=== PATIENT | female | born 1940 | race Caucasian/White ===

== ENCOUNTER 2018-10-11 10:31 | Inpatient (IN) ==
[2018-10-11 10:46] LABS: BLOOD TYPE ARTERIAL; HCO3-(ACT) 27.8 mmoll (20.0-26.0); METHB 0.9 % (0.0-1.5); O2(CT) 17.9 mL/dL (15.0-23.0); PCO2(98.6) 37 mmHg (35-45); PO2(98.6) 57 mmHg (60-100); SAMPLE BLOOD; SAO2 91.6 % (95.0-100.0); THB 14.3 g/dL (11.5-17.4); pH(98.6) 7.48 (7.35-7.45)
[2018-10-11 10:49] LABS: ALLEN TEST YES; MODALITY CANNULA
[2018-10-11 10:55] LABS: BASO# 0.04 X1000 (0.0-0.2); BASO% 0.2 % (0.0-0.8); EOS# 0.04 X1000 (0.0-0.7); EOS% 0.2 % (0.0-10.0); HEMOGLOBIN 14.5 g/dL (12.0-16.0); IMM GRAN# 0.12 X1000 (0.0-0.04); IMM GRAN% 0.7 % (0.0-0.5); LYMPH# 2.75 X1000 (1.2-3.4); LYMPH% 15.8 % (20.5-51.1); MCHC 31.5 g/dL (33-37); MCV 98.3 FL (81-99); MONO# 2.25 X1000 (0.11-0.59); MONO% 12.9 % (1.7-9.3); MPV 9.6 FL (7.4-10.4); NEUT# 12.19 X1000 (1.4-6.5); NEUT% 70.2 % (42.2-75.2); PLT 288 X1000 (130-400); RBC 4.68 XMIL (4.2-5.4); WBC 17.39 X1000 (4.8-10.8)
--- NOTE | 2018-10-11 11:01 | Diag Imaging Result Doc PS360 ---
EXAM: CHEST-2 VIEWS HISTORY: sob TECHNIQUE: Chest two views COMPARISON: None. FINDINGS: The patient is very kyphotic. Poor inspiratory effort.. The heart is borderline mildly enlarged. The vessels are not distended although there is mild central vascular prominence. There are no infiltrates. No pleural effusions. IMPRESSION: Mildly prominent heart Electronically signed by Gray Loomis 10/11/2018 10:58 AM
[2018-10-11 11:12] LABS: INR 0.95; PROTIME 13.2 Seconds (11.0-16.0)
[2018-10-11 11:13] LABS: PTT 26.3 Seconds (22.3-41.8)
[2018-10-11 11:27] LABS: AGAP 15; ALBUMIN 3.5 g/dL (3.5-5.0); ALKALINE PHOSPHATASE 75 U/L (32-104); BUN 25 mg/dL (8-22); CALCIUM 9.1 mg/dL (8.8-10.2); CHLORIDE 102 mmol/L (98-107); CK PROFILE 50 U/L (24-173); COSMO 292; CREATININE 0.7 mg/dL (0.5-0.9); ESTIMATED GFR > 60; GLUCOSE 114 mg/dL (70-104); GOT 22 U/L (10-30); GPT 26 U/L (10-36); POTASSIUM 3.3 mmol/L (3.5-5.1); SODIUM 144 mmol/L (136-145); TCO2 27 mmol/L (25-35); TOTAL PROTEIN 7.1 g/dL (6.3-8.3)
[2018-10-11 12:19] LABS: INFLUENZA A NEGATIVE (NEGATIVE); INFLUENZA B NEGATIVE (NEGATIVE)
--- NOTE | 2018-10-11 12:41 | Diag Imaging Result Doc PS360 ---
CT ANGIOGRM PULMONARY ARTERIES - 10/11/2018 INDICATION: rule out PE TECHNIQUE: Axial CT images were obtained after administering intravenous contrast. Coronal MIP images were generated. COMPARISON: None FINDINGS: There are several acute-appearing pulmonary emboli bilaterally. These involve several segmental arteries bilaterally and most lobar arteries. There is moderate cardiomegaly. There is a trace pleural effusion on the right. In the superior segment of the right lower lobe, there is an oblong nodular opacity measuring 3 cm. There is some hazy groundglass opacity bilaterally compatible with pulmonary edema. Upper abdominal images are unremarkable. There are several right-sided rib fractures, ribs #7-9. This seventh rib fracture is slightly displaced. The other rib fractures are nondisplaced. There is advanced degeneration throughout the spine. IMPRESSION: 1. Several acute pulmonary emboli. 2. Several recent right-sided rib fractures. Trace right pleural effusion. 3. Nodular infiltrate or opacity in the superior segment of the right lower lobe. Recommend a follow-up chest CT in 1-2 weeks. This exam was performed using automated exposure control, adjustment of mA or kV according to patient size, and/or use of iterative reconstruction technique Electronically signed by Андрей Montague 10/11/2018 12:38 PM
[2018-10-11] MEDS ORDERED: HEPARIN IV ONE (13:02)
[2018-10-11] MEDS ORDERED: LASIX IV ONE ×2 (13:07→22:38)
--- NOTE | 2018-10-11 13:07 | EKG Report ---
Test Performed on : 10/11/2018 11:17:45 AM Test Reason : cp Blood Pressure : / mmHG Vent. Rate : 104 BPM Atrial Rate : 104 BPM P-R Int : 134 ms QRS Dur : 082 ms QT Int : 360 ms P-R-T Axes : 053 010 -15 degrees QTc Int : 473 ms Sinus tachycardia. Inferior infarct , age undetermined ST & T wave abnormality, consider anterior ischemia Abnormal ECG No previous ECGs available Unconfirmed Result
[2018-10-11] MEDS ORDERED: LASIX ONE (13:52)
[2018-10-11] MEDS: HEPARIN 25,000 UNITS/D5W 25,000 UNIT/250 ML IV.SOLN IV SCH (14:00)
[2018-10-11] MEDS ORDERED: ZITHROMAX PO SCH (15:00)
[2018-10-11] MEDS ORDERED: ROCEPHIN 1 GM in NS 50 ML IV SCH (15:00)
--- NOTE | 2018-10-11 16:39 | Extremity Venous Study ---
Venous U/S Bilateral Legs - 10/11/2018 INDICATION: PE TECHNIQUE: COMPARISON: None FINDINGS: The right leg is normal. On the left side, there is extensive deep venous thrombosis. This involves the mid-distal superficial femoral vein, popliteal vein, and posterior tibial vein. IMPRESSION: Extensive deep venous thrombosis on the left. Electronically signed by Андрей Montague 10/11/2018 4:37 PM
--- NOTE | 2018-10-11 18:03 | PROVIDER DOCUMENTATION ---
This chart was entered by Marla Hernandez Scribe, acting as scribe for Magrie Rolon MD. HPI-Respiratory General - General Chief Complaint: Shortness of Breath Stated Complaint: SOB Time Seen by Provider: 10/11/18 10:31 Source: patient Allergies/Adverse Reactions: Patient Allergies Allergy/AdvReac Type Severity Reaction Status Date / Time aspirin Allergy HIVES Verified 10/11/18 10:47 Home Medications: Home Medication List Medication Instructions Recorded Confirmed Last Taken Type Amoxicillin/Potassium Clav 1 each PO BID 10/11/18 10/11/18 1 Day Ago History [Augmentin 875-125 Tablet] ~10/10/18 Ergocalciferol (Vitamin D2) 50,000 unit PO DIRECTED 10/11/18 10/11/18 1 Day Ago History [Vitamin D2] ~10/10/18 Hydrochlorothiazide 25 mg PO QAM 10/11/18 10/11/18 1 Day Ago History ~10/10/18 Omeprazole [Prilosec] 10 mg PO QAM 10/11/18 10/11/18 10/11/18 History Prednisone 10 mg PO BID 10/11/18 10/11/18 10/11/18 History TRANDOLApril [Mavik] 4 mg PO DAILY 10/11/18 10/11/18 1 Day Ago History ~10/10/18 Verapamil HCl [Verapamil ER] 240 mg PO BID 10/11/18 10/11/18 10/11/18 History - History of Present Illness-Resp Nature of Presenting Problem: Patient is a 77 year old female who presents to the ED via EMS with shortness of breath. Patient states she has been short of breath since August after being diagnosed with bronchitis. Patient also states cough and nasal drainage. Patient denies fever. Patient denies history of asthma and COPD. EMS states patient's O2 sat was 85% on room air on their arrival. EMS states placing patient on 4 L of O2 and O2 sat increased to 90%. Quality of Pain: reports: tightness Severity in ED: reports: moderate Onset/Duration: reports: other (2 months) Timing: reports: still present, getting worse Exposure: reports: unknown cause Cough Quality/Degree: reports: moderate Episode Frequency: occasional episodes Current Respiratory Medication Therapy: Initiated see nurses note Modifying Factors: improves with: nothing Associated Symptoms: reports: cough, nasal drainage, shortness of breath Similar Symptoms Previously?: Yes Recently seen or treated by another doctor?: Yes Review of Systems - Adult - REVIEW OF SYSTEMS - ADULT Constitutional: reports: no symptoms reported. denies: chills, fever, fatique Eyes: reports: no symptoms reported Ears, Nose, Mouth & Throat: reports: sinus problem (drainage). denies: ear pain , nose pain, throat pain Cardiovascular: reports: no symptoms reported Respiratory: reports: cough, shortness of breath. denies: wheezing Gastrointestinal: reports: no symptoms reported Genitourinary: reports: no symptoms reported Musculoskeletal: reports: no symptoms reported Integumentary: reports: no symptoms reported Neurological: reports: no symptoms reported Psychiatric: reports: no symptoms reported Endocrine: reports: no symptoms reported Hematologic/Lymphatic: reports: no symptoms reported Allergic/Immunologic: reports: no symptoms reported All Other Systems: Reviewed and Negative Past History - Adult - PAST MEDICAL HISTORY-ADULT Review of Records: reports: Nursing Assessment Review, Medications Reviewed, Social history reviewed & non-contributory. Major Childhood Illnesses: reports: denies history Cardiovascular: reports: HTN Respiratory: reports: denies history Gastrointestinal: reports: GERD Obstetrical/Gynecological: reports: denies history Genitourinary: reports: denies history Musculoskeletal: reports: denies history Neurological: reports: denies history Psychiatric: reports: denies history Endocrine/Immune: reports: denies history Other Conditions: reports: denies history - PRIOR SURGERIES/PROCEDURES Surgical/Procedure History: reports: reviewed, not pertinent - IMMUNIZATION STATUS Childhood Immunizations: See Nurse Assessment Flu Vaccine: See Nurse Assessment - FAMILY HISTORY Family History: reviewed, not pertinent - SOCIAL HISTORY Smoking: denies Substance Use: denies Living Situation: family Physical Exam-General - PHYSICAL EXAM-ADULT Initial Vital Signs Reviewed: Yes - CONSTITUTIONAL General Appearance: alert, mild distress - HEAD, EARS, NOSE, MOUTH & THROAT HENMT: moist mucous membranes, normal ENT inspection - RESPIRATORY Respiratory: chest non-tender, lungs clear, respiratory distress (mild), increased rate - CARDIOVASCULAR Cardiovascular: normal peripheral pulses, tachycardia - GASTROINTESTINAL (ABDOMEN) Abdominal Exam: normal bowel sounds, non tender, soft - MUSCULOSKELETAL Extremity: non-tender, other (1 + pitting edema to bilateral lower extremities) - SKIN Integumentary: normal color, normal turgor, warm/dry - NEUROLOGIC Neurologic: grossly normal - PSYCHIATRIC Psych/Mental Status: normal mood/affect, oriented x 3 Progress - PLAN OF CARE/RESULTS Progress/Plan/Lab Results: Vital Signs - 8 hr 10/11/18 10:32 10/11/18 11:15 10/11/18 12:19 Temperature 99 F Pulse Rate 118 H 105 H 100 H Respiratory Rate 34 H 32 H 32 H Blood Pressure 206/125 170/131 196/97 O2 Sat by Pulse Oximetry 96 96 93 L 10/11/18 14:19 Temperature 99 F Pulse Rate 95 H Respiratory Rate 36 H Blood Pressure 160/94 O2 Sat by Pulse Oximetry 93 L Laboratory Results - last 24 hr 10/11/18 10/11/18 10/11/18 10:15 10:45 10:45 WBC 17.39 H RBC 4.68 Hgb 14.5 Hct 46.0 MCV 98.3 MCH 31.0 MCHC 31.5 L RDW Std Deviation 15.0 H Plt Count 288 MPV 9.6 Immature Gran % (Auto) 0.7 H Neut % (Auto) 70.2 Lymph % (Auto) 15.8 L Fillmore % (Auto) 12.9 H Eos % (Auto) 0.2 Baso % (Auto) 0.2 Immature Gran # (Auto) 0.12 H Neut # (Auto) 12.19 H Lymph # (Auto) 2.75 Fillmore # (Auto) 2.25 H Eos # (Auto) 0.04 Baso # (Auto) 0.04 PT INR PTT (Actin FS) Specimen Type ARTERIAL Sample Site R RADIAL pH 7.48 H pCO2 37 pO2 57 L HCO3 27.8 H Base Excess 4.0 H Oxyhemoglobin 89.0 L* ABG O2 Sat (Calculated) 17.9 ABG O2 Saturation 91.6 L ABG Carboxyhemoglobin 1.90 ABG Methemoglobin 0.9 Hasmukh Test YES A-a O2 Difference 153.0 Total Hemoglobin 14.3 Lactate 1.50 Liter Flow 4.0 Blood Gas Modality CANNULA FiO2 % 36.0 Sodium 144 Potassium 3.3 L Chloride 102 Carbon Dioxide 27 Anion Gap 15 BUN 25 H Creatinine 0.7 Estimated GFR/1.73 m2 > 60 BUN/Creatinine Ratio 36 Glucose 114 H Calculated Osmolality 292 Calcium 9.1 Total Bilirubin 0.80 AST 22 ALT 26 Alkaline Phosphatase 75 Creatine Kinase 50 Troponin T Vnt-Q-Axqfhpzanje Pept Total Protein 7.1 Albumin 3.5 Globulin 4.0 Albumin/Globulin Ratio 1.0 Plasma Lactate Influenza A (Rapid) Influenza B (Rapid) 10/11/18 10/11/18 10/11/18 10:45 10:45 10:45 WBC RBC Hgb Hct MCV MCH MCHC RDW Std Deviation Plt Count MPV Immature Gran % (Auto) Neut % (Auto) Lymph % (Auto) Fillmore % (Auto) Eos % (Auto) Baso % (Auto) Immature Gran # (Auto) Neut # (Auto) Lymph # (Auto) Fillmore # (Auto) Eos # (Auto) Baso # (Auto) PT 13.2 INR 0.95 PTT (Actin FS) 26.3 Specimen Type Sample Site pH pCO2 pO2 HCO3 Base Excess Oxyhemoglobin ABG O2 Sat (Calculated) ABG O2 Saturation ABG Carboxyhemoglobin ABG Methemoglobin Hasmukh Test A-a O2 Difference Total Hemoglobin Lactate Liter Flow Blood Gas Modality FiO2 % Sodium Potassium Chloride Carbon Dioxide Anion Gap BUN Creatinine Estimated GFR/1.73 m2 BUN/Creatinine Ratio Glucose Calculated Osmolality Calcium Total Bilirubin AST ALT Alkaline Phosphatase Creatine Kinase Troponin T 0.031 Par-S-Jwcgloykqrr Pept 25875 H Total Protein Albumin Globulin Albumin/Globulin Ratio Plasma Lactate Influenza A (Rapid) Influenza B (Rapid) 10/11/18 10/11/18 11:30 11:35 WBC RBC Hgb Hct MCV MCH MCHC RDW Std Deviation Plt Count MPV Immature Gran % (Auto) Neut % (Auto) Lymph % (Auto) Fillmore % (Auto) Eos % (Auto) Baso % (Auto) Immature Gran # (Auto) Neut # (Auto) Lymph # (Auto) Fillmore # (Auto) Eos # (Auto) Baso # (Auto) PT INR PTT (Actin FS) Specimen Type Sample Site pH pCO2 pO2 HCO3 Base Excess Oxyhemoglobin ABG O2 Sat (Calculated) ABG O2 Saturation ABG Carboxyhemoglobin ABG Methemoglobin Hasmukh Test A-a O2 Difference Total Hemoglobin Lactate Liter Flow Blood Gas Modality FiO2 % Sodium Potassium Chloride Carbon Dioxide Anion Gap BUN Creatinine Estimated GFR/1.73 m2 BUN/Creatinine Ratio Glucose Calculated Osmolality Calcium Total Bilirubin AST ALT Alkaline Phosphatase Creatine Kinase Troponin T Eej-T-Uhtovxmbuql Pept Total Protein Albumin Globulin Albumin/Globulin Ratio Plasma Lactate 1.6 Influenza A (Rapid) NEGATIVE Influenza B (Rapid) NEGATIVE Orders Category Date Time Status Cardiac Monitoring DIRECTED Care 10/11/18 10:29 Active Rider Cath Insertion ORDERED Care 10/11/18 14:00 Active Oxygen Therapy- ED Nursing DIRECTED Care 10/11/18 10:29 Active Saline Loc NOW Care 10/11/18 10:29 Active CHEST-2 VIEWS [RAD] Stat Exams 10/11/18 10:29 Completed CTA [CT ANGIOGRM PULMONARY ARTERIES] [CT] Stat Exams 10/11/18 11:28 Completed ABG [RESP] Routine Lab 10/11/18 10:15 Completed BLOOD CULTURE [BLDCUL] Stat Lab 10/11/18 11:12 Ordered CBC WITH ELECTRONIC DIFF [HEME] Stat Lab 10/11/18 10:45 Completed CK PROFILE [SP CHEM] Stat Lab 10/11/18 10:45 Completed COMPREHENSIVE METABOLIC PANEL [CHEM] Stat Lab 10/11/18 10:[address] Stat Lab 10/11/18 11:30 Completed INR AMBULATORY Stat Lab 10/11/18 13:03 Ordered LACTATE, PLASMA [CHEM] Stat Lab 10/11/18 11:35 Completed PRO B-NATRIURETIC PEPTIDE Stat Lab 10/11/18 10:45 Completed PROTIME WITH INR [COAG] Stat Lab 10/11/18 10:45 Completed PTT [COAG] Stat Lab 10/11/18 10:45 Completed TROPONIN T Stat Lab 10/11/18 10:45 Completed Furosemide [Lasix] Med 10/11/18 13:52 Discontinued 20 mg .ROUTE .STK-MED ONE Furosemide [Lasix] Med 10/11/18 13:07 Discontinued 20 mg IV NOW ONE Heparin Med 10/11/18 13:02 Discontinued 5,000 unit IV NOW ONE Heparin 25,000 Units/D5w Med 10/11/18 13:15 Active 25,000 unit in 250 ml IV 11.2 mls/hr CP/SOB/Palp >45 yrs of Age Stat Oth 10/11/18 10:29 Ordered Oxygen Device Stat Oth 10/11/18 11:36 Active EKG [EKG] Stat Ther 10/11/18 10:29 Draft Result Diagrams: 10/11/18 10:45 10/11/18 10:45 - EKG 1 Time of EKG reading by physician:: 11:17 EKG Read and Signed by:: Margie Rolon EKG Interpretation (*Must complete 3 of following elements*): Abnormal (ST & T wave abnormality, consider anterior ischemia) Rhythm: sinus tachycardia Comments: inferior infarct, age undetermined; - XRAY 1 XRAY Study: Chest Impression: See EMR Report (EXAM: CHEST-2 VIEWS HISTORY: sob TECHNIQUE: Chest two views COMPARISON: None. FINDINGS: The patient is very kyphotic. Poor inspiratory effort.. The heart is borderline mildly enlarged. The vessels are not distended although there is mild central vascular prominence. There are no infiltrates. No pleural effusions. IMPRESSION: Mildly prominent heart Electronically signed by Gray Loomis 10/11/2018 10:58 AM 10/11/18 1058 Interpreting Physician: Gray Loomis MD Dictated Date/Time: 10/11/18 1058 cc: Margie Rolon MD; Isiah Silverman MD) - CT/MRI 1 CT Study: Angiogram Impression: See EMR Report ( CT ANGIOGRM PULMONARY ARTERIES - 10/11/2018 INDICATION: rule out PE TECHNIQUE: Axial CT images were obtained after administering intravenous contrast. Coronal MIP images were generated. COMPARISON: None FINDINGS: There are several acute-appearing pulmonary emboli bilaterally. These involve several segmental arteries bilaterally and most lobar arteries. There is moderate cardiomegaly. There is a trace pleural effusion on the right. In the superior segment of the right lower lobe, there is an oblong nodular opacity measuring 3 cm. There is some hazy groundglass opacity bilaterally compatible with pulmonary edema. Upper abdominal images are unremarkable. There are several right-sided rib fractures, ribs #7-9. This seventh rib fracture is slightly displaced. The other rib fractures are nondisplaced. There is advanced degeneration throughout the spine. IMPRESSION : 1. Several acute pulmonary emboli. 2. Several recent right-sided rib fractures. Trace right pleural effusion. 3. Nodular infiltrate or opacity in the superior segment of the right lower lobe. Recommend a follow-up chest CT in 1-2 weeks. This exam was performed using automated exposure control, adjustment of mA or kV according to patient size, and/or use of iterative reconstruction technique Electronically signed by Андрей Montague 10/11/2018 12: 38 PM 10/11/18 1238 Interpreting Physician: Андрей Montague MD Dictated Date/Time: 10/11/18 1233 cc: Margie Rolon MD; Isiah Silverman MD) - CONSULTS/PCP/HOSPITALIST Notification #1 *Consult/PCP/Hospitalist*: Dr. Angeles Time Discussed: 13:35 Reason/Comments: Dr. Rolon consulted with Dr. Angeles about patient. Consult Disposition: Will see in ED Departure - Departure Date of Disposition Decision: 10/11/18 Time of Disposition Decision: 13:35 DIAGNOSIS: Multiple pulmonary emboli Disposition: ADMITTED INPATIENT 09 Certified Medical Emergency: Emergent Condition: Stable Referrals and Follow-Ups: Isiah Silverman MD [Primary Care Provider] - - Critical Care Note This patient required my direct & personal management of CC.: Yes Total Time (mins): 46 Critical Care Statement: This patient required my direct personal management to treat or rule out processes, the absence of which, could potentiallly result in sudden, clinically significant life or limb threatening deterioration. Attestation - Physician/ BRONWYN Attestation The physician spent face to face time with patient:: Yes Advanced Practice Provider documentation review:: Supervising physician onsite and consulted in the evaluation and care of this patient. The physician did have a face to face encounter with the patient. This chart was documented by the indicated scribe, (Marla Hernandez Scribe) and accurately reflects the services I performed and decisions made by me, Margie Rolon MD, as attested by the provider's signature.
[2018-10-11] MEDS ORDERED: NORCO-5 PO ONE (18:36)
[2018-10-11] MEDS ORDERED: MORPHINE IV PRN (18:44)
[2018-10-11] MEDS: SOLU-CORTEF IV SCH (19:21)
--- NOTE | 2018-10-11 20:49 | HISTORY AND PHYSICAL ---
CHIEF COMPLAINT: Shortness of breath. HISTORY OF PRESENT ILLNESS: This is a 77-year-old female with a history of gastroesophageal reflux disease, hypertension, rheumatoid arthritis, She presents to the emergency room complaining of shortness of breath that has actually been present since August for which she was evaluated by her primary care physician and has taken two 10 day rounds of amoxicillin and two 5 day rounds of Bactrim, along with albuterol inhaler and she reports symptoms slowly have become worse during this time. Today she had an exacerbation, has slowly increased during this time. Today, she became extremely short of breath, having 90 degree orthopnea. Therefore, she called EMS and her O2 sat was 85% on room air on their arrival. It is reported that 4 L of oxygen increased her to 90%. On arrival to the emergency room sats were 95-96% on 4 L nasal cannula. Respirations were 32 to 34 at this time, blood pressures were 206/125. She was given Lasix. A CTA pulmonary was performed which revealed several acute pulmonary emboli bilaterally, involved several segmental arteries bilaterally and most lobar arteries, as well as a 3 cm oblong nodular opacity in the right lower lobe. She was also noted to have right-sided rib fractures 7 through 9 with the 7th rib being slightly displaced that are recent.She was given 5000 of heparin, placed on heparin drip per heparin protocol and she is being admitted for further evaluation and treatment. PAST MEDICAL HISTORY: Rheumatoid arthritis on chronic steroids, hypertension, gastroesophageal reflux disease. PAST SURGICAL HISTORY: Denies. SOCIAL HISTORY: She denies alcohol, tobacco or illicit drug use. ALLERGIES: Aspirin, which causes hives. HOME MEDICATIONS: A list will be obtained by the nursing staff and once confirmed for accuracy it will be reviewed and started as appropriate. REVIEW OF SYSTEMS: Discussed with patient with pertinent positives stated in the HPI. She denied any syncope, dizziness, any chest pain, palpitations, any recent weight loss or weight gain, any nausea, vomiting, diarrhea, constipation, black or bloody vomitus or stools, hematuria, dysuria, frequency or urgency. PHYSICAL EXAMINATION: GENERAL: This is a 77-year-old female who is sitting up in the bed in the emergency room in mild distress. VITAL SIGNS: Blood pressure is 160/94, with respirations 32, heart rate is 95, temperature is 99 oral, with O2 sats 92-93% on Venturi mask at 8 L. EYES: Pupils are equal, round, react to light. EOMs are intact. Sclerae are anicteric. Mucous membranes. HEENT: Normocephalic, atraumatic. Mucous membranes are moist. NECK: Supple. Trachea midline. CARDIOVASCULAR: Regular rate and rhythm. S1 and S2 are appreciated. She has pitting edema noted to bilateral lower extremities from just above the knee down with peripheral pulses palpable x 4 extremities. She denies any leg pain or calf tenderness. PULMONARY: Breath sounds are diminished throughout. CHEST: Rises and falls symmetrically with respiration. Chest wall is nontender to palpation. She does have some increased work of breathing noted. GASTROINTESTINAL: Abdomen is soft, nontender, nondistended with bowel sounds in all 4 quadrants. GENITOURINARY: She has no CVT nor suprapubic tenderness. NEUROLOGIC: She is alert oriented x 3. SKIN: Warm and dry. LABORATORY: WBC is 17.3 with hemoglobin 14.5, hematocrit 46 and platelets of 288,000. INR 0.95. Sodium is 144, potassium 3.3, BUN is 25, creatinine 0.7 with a glucose of 114. ProBNP is 11,892. Flu A and B are negative. ABGs: PH is 7.4, with pCO2 of 37, PO2 of 57, with a bicarb of 27.8. Blood cultures are pending. Chest x-ray revealed mildly prominent heart with poor inspiratory effort. Vessels are not distended, although there is mild central vascular prominence. There are no infiltrates, no pleural effusions. Pulmonary arteriogram revealed several acute pulmonary emboli bilaterally involving segmental arteries bilaterally and most lobar arteries. There is cardiomegaly. There is a trace pleural effusion. In the superior segment of the right lower lobe there is an oblong nodular opacity measuring 3 cm. There is some hazy ground-glass opacity bilateral compatible with pulmonary edema. There are several right rib fractures, #7 to 9, with the 7th rib slightly displaced. These are recent fractures. A CT is recommended to follow up in 1 to 2 weeks. Lower extremity Doppler reveals extensive deep vein thrombosis on the left involving the mid to distal superficial femoral vein, popliteal vein and posterior tibial vein. ASSESSMENT: 1. Acute bilateral pulmonary emboli. The patient was given heparin bolus in the emergency room. We will continue with a heparin drip per protocol. 2. Extensive left lower extremity DVT. As stated above, we will use heparin drip. 3. Acute hypoxic respiratory failure. We will continue with supplemental oxygen. We will consult Pulmonology. 4. Leukocytosis. Causes could be multifactorial. The patient is on chronic steroids for rheumatoid arthritis, Also, she has been treated over the last 2 months for bronchitis. She has also had four rounds of antibiotics previously. Blood cultures are pending. We will go ahead and give Rocephin and azithromycin. 5. A 3 cm nodule in the right lower lobe per CT scan. Will consult Pulmonology. 6. Right-sided rib fractures #7 through 9 with displaced 7th rib. We are aware. 7. Elevated proBNP. She denies any history of heart failure. She denies ever having an echocardiogram or workup. We will order an echocardiogram. 8. Rheumatoid arthritis, on chronic steroids. We are aware and will review her home medications and continue as appropriate. 9. Hypertension. Will check home medications. 10. Gastroesophageal reflux disease, with PPI. 11. Rheumatoid arthritis. PLAN: The patient will be transferred to [facility] ICU. Pulmonary will be consulted. Further consults. We will place a Rider catheter as the patient becomes very hypoxic with standing. We will also obtain a strict I O with daily weights. Check a CBC and CMP in the morning and, of course, PTTs per protocol. Further treatments pending hospital course. Dictated by LISSETH Anderson for Harvinder Angeles MD This chart was documented by, LISSETH Anderson and accurately reflects the services performed, treatment plan and medical decisions as attested by the providers signature Harvinder Angeles MD. cc: LISSETH Anderson MD
[2018-10-11] MEDS ORDERED: KLOR-CON PO ONE (22:37)
[2018-10-11] MEDS: AMBIEN PO SCH (23:45)
[2018-10-12] MEDS: ISOPTIN SR PO SCH ×3 (00:10→20:57)
[2018-10-12] MEDS: SOLU-CORTEF IV SCH ×3 (02:33→18:58)
[2018-10-12 04:02] LABS: BASO# 0.03 X1000 (0.0-0.2); BASO% 0.2 % (0.0-0.8); EOS# 0.02 X1000 (0.0-0.7); EOS% 0.1 % (0.0-10.0); HEMATOCRIT 40.5 % (37.0-47.0); HEMOGLOBIN 12.7 g/dL (12.0-16.0); IMM GRAN% 0.6 % (0.0-0.5); LYMPH# 1.86 X1000 (1.2-3.4); MCH 31.3 PG (27-31); MCHC 31.4 g/dL (33-37); MCV 99.8 FL (81-99); MONO# 1.39 X1000 (0.11-0.59); MPV 9.5 FL (7.4-10.4); NEUT# 12.11 X1000 (1.4-6.5); NEUT% 78.1 % (42.2-75.2); PLT 256 X1000 (130-400); RBC 4.06 XMIL (4.2-5.4); RDW 14.8 % (11.5-14.5); WBC 15.51 X1000 (4.8-10.8)
[2018-10-12 04:27] LABS: AGAP 13; ALB/GLOB RATIO 0.8; ALBUMIN 2.8 g/dL (3.5-5.0); ALKALINE PHOSPHATASE 54 U/L (32-104); BUN 20 mg/dL (8-22); CALCIUM 8.7 mg/dL (8.8-10.2); CHLORIDE 103 mmol/L (98-107); COSMO 293; CREATININE 0.6 mg/dL (0.5-0.9); ESTIMATED GFR > 60; GLUCOSE 130 mg/dL (70-104); GOT 15 U/L (10-30); GPT 20 U/L (10-36); POTASSIUM 3.8 mmol/L (3.5-5.1); SODIUM 145 mmol/L (136-145); TCO2 29 mmol/L (25-35); TOTAL PROTEIN 6.2 g/dL (6.3-8.3)
[2018-10-12] MEDS ORDERED: PRILOSEC PO SCH (07:00)
[2018-10-12] MEDS: HEPARIN 25,000 UNITS/D5W 25,000 UNIT/250 ML IV.SOLN IV SCH (08:34)
[2018-10-12] MEDS ORDERED: MORPHINE IV PRN (08:36)
[2018-10-12] MEDS ORDERED: HEPARIN 25,000 UNITS/D5W 25,000 UNIT/250 ML IV.SOLN IV SCH (09:00)
[2018-10-12] MEDS ORDERED: ISOPTIN SR PO SCH ×2 (09:00)
[2018-10-12] MEDS: ZITHROMAX PO SCH (09:36)
--- NOTE | 2018-10-12 10:13 | PROGRESS NOTE ---
DATE: 10/12/2018 SUBJECTIVE: This morning Ms. Prather refers to be doing fairly okay. Still has some residual shortness of breath and is tachypneic. OBJECTIVE: Vital signs: Blood pressure is 135/88, pulse of 73, respirations 27 , temperature is 97.9. The patient's O2 saturation is 94% on Venturi mask. General: Ms. Prather is a 77-year- old lady. She is in bed. She is not in any cardiopulmonary distress. HEENT: Mucosa is pink and moist. Anicteric. Acyanotic. Neck: Supple. Chest: Air entry is bilaterally reduced. A few crackles posteriorly. Cardiovascular: Tachycardic but no murmurs, no rubs, and no gallops. Abdomen: Soft, distended, but nontender. Bowel sounds are present. Extremities: No pedal edema. Distal pulses present. 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 No focal neurological deficit. LABORATORY DATA: WBC is 15.51, hemoglobin is 12.7, platelet count of 256,000. Chemistry is also reviewed, completely unremarkable. Yesterday the patient pro-B was 11,892 and troponins were normal. The patient has never been hypotensive. IMAGING STUDIES: A CTA of the lung did show several acute pulmonary emboli. Lower extremity DVT shows left-sided extensive DVT. ASSESSMENT: 1. Acute hypoxemic respiratory failure secondary to underlying pulmonary embolism, possibly pneumonia versus pulmonary infarct. The patient is currently on a heparin drip. 2. Left lower extremity deep vein thrombosis. The patient is on a heparin drip. We think this is because the patient has been remarkably immobile for the past couple of months, coupled by her weight. We will call Hematology/Oncology to evaluate the patient and also to make sure that we do not miss any other secondary causes of VTEs. I have reached out to [facility] to see if IR will evaluate the patient for intrapulmonary thrombolytics. However, I understand the hospital is on diversion. 3. History of hypertension. 4. Morbid obesity. 5. Right lower lobe infiltrate concerning for pneumonia. The patient is currently on antibiotics. As I said, this could also be an infarcted lung from the PE or atelectasis PLAN: So in general I think Ms. Prather continues to be slightly tachycardic and tachypneic. Her cardiac markers were elevated, especially the pro-B. We are still pending the echocardiogram to see how strained is the right heart. In any case, patient is currently on anticoagulation. I think her VTEs are related to immobility. However, secondary causes are also plausible to be ruled out. The patient will be evaluated by Hematology/Oncology and will be seen by Pulmonary Medicine. I did discuss the possibilities of getting surgery also to see the patient for IVC filter evaluation. I will, however, wait until patient is seen by Hematology/ Oncology. I also discussed with the patient about getting to [facility] to look at her imaging and see if they would recommend intrapulmonary tPA. However, I was told by the transfer center that [place] is on diversion. For now we will continue with the IV heparin and hopefully tomorrow we might be able to start the patient on oral anticoagulation. I did discuss the newer oral anticoagulants with them and both the and the patient are willing to use the newer anticoagulation and not the Coumadin. cc: Jacobo Franks MD MTDD
--- NOTE | 2018-10-12 13:46 | PULMONOLOGY CONSULTATION ---
DATE: 10/12/2018 REASON FOR CONSULTATION: Pulmonary emboli. HISTORY OF PRESENT ILLNESS: Ms. Prather is a 77-year-old white female with morbid obesity, long history of rheumatoid arthritis, with decrease in mobility, who has noted increasing shortness of breath over the last 6 to 8 weeks. The patient was treated for bronchitis without improvement. The patient has been relatively immobile for the last 24 to 36 hours, and when she went to move she noted her breathing has become worse. The patient presented to the emergency room and was initially significantly hypertensive with a systolic blood pressure greater than 200. A CT pulmonary angiogram was performed yesterday morning, which reveals several pulmonary emboli bilaterally. The patient also has some right rib fractures, but does not recall recent trauma. She has been initiated on heparin. She denies shortness of breath at rest. PAST MEDICAL HISTORY/PROBLEM LIST: 1. Morbid obesity with a BMI greater than 40 as per above. 2. Rheumatoid arthritis with a long history of steroid use. 3. Gastroesophageal reflux disease. 4. Hypertension. SOCIAL HISTORY: The patient denies tobacco or alcohol use. FAMILY HISTORY: Noncontributory to current presentation. PHYSICAL EXAMINATION: General: Reveals an obese white female, resting comfortably in the bed. She has no increased work of breathing. Vital Signs: Blood pressure 136/76, heart rate 93, respiratory rate 27, oxygen saturation 95%. HEENT: Pupils are equal and reactive. Oropharynx is clear. Neck: Supple. Chest: Reveals good air entry bilaterally with normal S1, normal S2. No right ventricular heave is appreciated. Cardiac: Regular rate. Normal S1, normal S2. Abdomen: Obese and soft. Extremities: Without edema. LABORATORY DATA: CT scan as per HPI. Venous Doppler studies of the lower extremities reveal deep vein thrombosis involving the mid to distal superficial femoral vein, popliteal vein, and posterior tibial vein. Arterial blood gas reveals a pH of 7.48, pCO2 of 37, PO2 of 57. Chemistries: Sodium 144, potassium 3.3, chloride 102, bicarbonate 27, BUN 25, creatinine 0.7. IMPRESSION: A 77-year-old white female with deep vein thrombosis, pulmonary emboli, hypoxemic respiratory failure. She currently is hemodynamically doing well. She has had no significant tachycardia over 100 beats per minute. She has had no evidence of hypotension, if anything has been periods of hypertension during this hospitalization. She has rib fractures, but no recent trauma. I would still deem her a candidate for thrombolytics if she were to have an alteration in clinical status. At this juncture, I would continue anticoagulation and switch the patient to Xarelto or Eliquis in the next 24 to 48 hours. If she were to switch to Coumadin, she will need to be overlapped with the heparin. At this juncture, I would not pursue filter placement. The patient does have an elevation in the proBNP and likely related to a combination of pulmonary emboli, but I suspect that her baseline proBNP is at least slightly to moderately elevated associated with her morbid obesity. RECOMMENDATIONS: 1. Continue oxygen for acute hypoxemic respiratory failure. 2. Continue heparin for pulmonary emboli. It is not clear why she is on a heparin drip, and Lovenox could be utilized if necessary to simplify her management. 3. Consider transition to Eliquis or Xarelto in the near future. cc: Wai Lopez MD
--- NOTE | 2018-10-12 14:43 | HEMO/ONC CONSULTATION ---
DATE: 10/12/2018 CHIEF COMPLAINT: We are being consulted for further evaluation and management of patient's pulmonary embolism and extensive DVT. HISTORY OF PRESENT ILLNESS: Ms. Prather is a 77-year-old female who presented to the emergency room complaining of shortness of breath that has been going on since August but progressively gotten worse over the past few days. When she arrived to the emergency department, she was 75% on room air that improved with 4 L of oxygen. The patient had a CTA pulmonary which revealed several acute pulmonary emboli bilaterally that involve several segmental arteries bilaterally and most lobar arteries. The patient also had some right-sided rib fracture 7 through 9. The patient was started on a heparin drip at that time and admitted to the ICU for further evaluation and treatment. PAST MEDICAL HISTORY: Rheumatoid arthritis on chronic steroids, hypertension, gastroesophageal reflux disease. PAST SURGICAL HISTORY: Denies any. SOCIAL HISTORY: Denies any alcohol, tobacco, or illicit drug use. FAMILY HISTORY: Noncontributory. ALLERGIES: Aspirin. HOME MEDICATIONS: 1. Vitamin D2. 2. Hydrochlorothiazide. 3. Osborne 5. 4. Prilosec. 5. Prednisone. 6. Mavik. 7. Verapamil ER 8. Ambien. REVIEW OF SYSTEMS: Negative unless mentioned in the HPI. PHYSICAL EXAMINATION: Vital Signs: Temperature 98.1, heart rate 79, respiratory rate 32, blood pressure 142/87. Sat 95% on nasal cannula. General: Patient is awake, lying in bed, mildly short of breath and tachypneic. HEENT: Anicteric. Pupils PERRLA. Mucous membranes dry. Neck: Supple. Trachea is midline. No JVD noted. L:ymph nosde survey: no palpable lymphadenopathy. Cardiovascular: Regular rate and rhythm. Chest: Bilateral breath sounds diminished bilaterally. Abdomen: Soft, nontender. Bowel sounds present in all 4 quadrants. No hepatosplenomegaly noted. Skin: Warm, dry, and intact. No petechiae, no clubbing, no rashes, cyanosis. Pitting edema to bilateral lower extremities. Neurologic: Alert and oriented x3. No focal deficits noted. LABORATORY DATA: White cell count 15.51, hemoglobin 12.7, hematocrit 40.5, platelets are 256. Potassium 3.8. BUN 20. Creatinine 0.6. RADIOLOGY RESULTS: 1. CT angiogram of pulmonary arteries showed several acute pulmonary emboli, several recent right- sided rib fractures with a trace right pleural effusion and then a nodular infiltrate or opacity in the superior segment of the right lower lobe. They recommend a follow-up CT in 1 to 2 weeks. 2. Venous ultrasound to bilateral legs shows an extensive deep venous thrombosis on the left involving the mid distal superficial femoral vein, popliteal vein, and posterior tibial vein. ASSESSMENT AND PLAN: 1. Acute bilateral pulmonary emboli with extensive left lower extremity deep venous thrombosis: A hypercoagulable workup is pending at this time. It is most likely related to immobilization but those labs are pending. We will continue to follow up on those. The patient is on heparin drip. Continue heparin per protocol at this time. We will continue to monitor closely. 2. Acute hypoxic respiratory failure: Continue with oxygen. Continue recommendations per pulmonology. 3. Leukocytosis most likely chronic due to chronic steroid use for rheumatoid arthritis. Blood cultures are pending at this time. Continue antibiotics as ordered by primary medical team. Continue to monitor. 4. Right lower lobe lung nodule on CT scan: Pulmonology has been consulted. Continue to monitor closely. 5. Left-sided rib fracture 7 through 9 with displaced 7th rib, aware. 6. Elevated ProBNP: Denies any history of heart failure. Echocardiogram has been ordered looking for any right-sided heart strain due to pulmonary embolism as well. 7. Rheumatoid arthritis on chronic steroids, aware. Continue to monitor. 8. Hypertension. Continue home medications. 9. Gastroesophageal reflux disease. Continue with proton pump inhibitor. Plan discussed with Dr. Ward. Dictated by LISSETH Cuello for Camilo Ward MD Patient seen and examined. Patient has felt unwell over the last 2 months. She initially developed respiratory illness with a prolonged recovery course. This led to a good bit of immobilization. Her shortness of breath has continued to worsen and she has developed increasing weakness. In the ER evaluation revealed bilateral pulmonary embolism as well as left lower extremity DVT. An echocardiogram has been a obtained to rule out heart strain. No family history of DVT or pulmonary embolism. We will check hypercoagulable state. Continue anticoagulation as you are doing. Discussed with Dr. Lopez. Camilo Ward M.D. cc: LISSTEH Cuello MD [facility]
[2018-10-12] MEDS: ROCEPHIN 1 GM in NS 50 ML IV SCH (16:12)
--- NOTE | 2018-10-12 19:46 | ECHO REPORT ---
ORDER DATE: 10/11/2018 INDICATION: Suspected pericardial effusion. M-MODE MEASUREMENTS: Left ventricle end diastole: 3.5. Left ventricle end systole: 2.2. Posterior wall: 1.3 to 1.5. Interventricular septum: 1.3 to 1.5. Left atrium: 3.4. Aortic root: 2.8. SUMMARY OF 2-DIMENSIONAL IMAGIN. Left ventricular function is excellent. Ejection fraction is estimated at 65% to 70%. There is a mild degree of concentric LVH. A trivial pericardial effusion may be present. This is not causing any hemodynamic compromise. There is epicardial fat pad. 2. The aortic valve shows no stenosis nor regurgitation. There is some sclerosis of it. 3. The mitral valve is unremarkable. 4. Pulsed wave Doppler of mitral inflow shows mild reversal of the E/A ratio. The ratio is 0.9. 5. Tissue Doppler of septal and lateral mitral annulus averages 4 cm. There is impaired left ventricular relaxation. 6. The tricuspid valve shows a mild degree of regurgitation. Pulmonary pressure estimated at 51 to 56 mmHg. 7. The pulmonic valve is normal. Color flow mapping unremarkable. 8. There is no evidence of mass. No thrombus. SUMMARY: This study shows: 1. Hyperdynamic left ventricle with mild degree of concentric LVH. 2. Very small trivial pericardial effusion. No hemodynamic compromise is present. 3. Pulmonary pressure 51 to 56 mmHg. 4. Impaired left ventricular relaxation. 5. Sclerosis of the aortic valve without stenosis. Clinical correlation recommended. cc: MD Neeru Rdz CRNP
[2018-10-12] MEDS: AMBIEN PO SCH (22:00)
[2018-10-13] MEDS ORDERED: NS 1,000 ML IV SCH (01:15)
[2018-10-13] MEDS: SOLU-CORTEF IV SCH (02:53)
[2018-10-13] MEDS ORDERED: HEPARIN IV ONE (05:26)
[2018-10-13] MEDS ORDERED: HEPARIN 25,000 UNITS/D5W 25,000 UNIT/250 ML IV.SOLN IV SCH (05:30)
[2018-10-13] MEDS: PRILOSEC PO SCH (07:09)
--- NOTE | 2018-10-13 08:10 | Diag Imaging Result Doc PS360 ---
EXAM: CHEST-PORTABLE 10/13/2018 HISTORY: dyspnea TECHNIQUE: AP portable at 0753 COMMENT: There is cardiomegaly. The left heart border is obscured and there is opacity in the left costophrenic angle. Compared to 10/11/2018 there has been no significant change considering differences in technique and inspiration. IMPRESSION: Atelectasis versus pneumonia in the lingula. Electronically signed by Abe Burris 10/13/2018 8:08 AM
[2018-10-13] MEDS: ISOPTIN SR PO SCH ×2 (08:34→20:19)
[2018-10-13] MEDS: ZITHROMAX PO SCH (08:34)
--- NOTE | 2018-10-13 08:50 | HEMO/ONC PROGRESS NOTE ---
DATE: 10/13/2018 SUBJECTIVE: The patient continues to be short of breath and tachypneic. The patient continues to deny any pain. OBJECTIVE: Vital Signs: Temperature of 97.9 degrees, heart rate 73, respiratory rate 24, blood pressure is 148/86, saturating 97% on nasal cannula. General: The patient is awake, lying in bed. No acute distress noted at this time. HEENT: Anicteric. Pupils PERRLA. Mucous membranes appear to be moist. Cardiovascular: S1, S2. Chest: Bilateral breath sounds diminished bilaterally. Abdomen: Soft, nontender. Bowel sounds present in all 4 quadrants. Neurologic: Alert and oriented x3. No focal deficits noted. Laboratory Data: Homocystine level normal. ASSESSMENT AND PLAN: 1. Acute bilateral pulmonary emboli with extensive left lower extremity deep venous thrombosis: Homocystine level was normal. Rest of the hypercoagulable workup is still pending. We will continue to follow up on those. The patient will continue a heparin drip as ordered. Transition to Xarelto soon. Continue to monitor closely. 2. Acute hypoxic respiratory failure: Continue oxygen. Continue recommendations per pulmonology. 3. Leukocytosis: Most likely due to chronic steroid use. Blood culture so far showed no growth. Continue recommendations per primary medical team. 4. Right lower lobe lung nodule on CT scan: Pulmonary has been consulted as well. Continue to monitor closely. 5. Left-sided rib fractures 7 through 9. 6. Gastroesophageal reflux disease: Continue with proton pump inhibitors. Dictated by LISSETH Cuello for Camilo Cavazos MD No new issues. Continue anticoagulation. ECHO without strain. Change to oral therapy when possible. camilo cavazos MD cc: LISSETH Cuello MD [facility]
--- NOTE | 2018-10-13 09:35 | PULMONOLOGY PROGRESS NOTE ---
DATE: 10/13/2018 SUBJECTIVE: Patient is awake, alert, and conversant. She reports her shortness of breath has diminished a little bit. She has a cough, which she reports is occasionally productive. OBJECTIVE: Vital signs: The patient had been afebrile for the last 24 hours. Vital signs: Blood pressure 148/86, heart rate 73, respiratory rate 22, oxygen saturation 97% on 4 L per nasal cannula. HEENT: Pupils are equal and reactive. Oropharynx is clear. Neck: Supple. Chest: Reveals occasional rhonchi bilaterally. Cardiac: S1 and S2. Regular rhythm. Abdomen: Soft. Extremities: Without edema. LABORATORIES: Chest x-ray appears to show some atelectasis at the left base, unchanged from admission. But significant atelectasis not seen on her CT scan, likely related to cardiomegaly or cardiac fat pad. No chemistries or CBC today. IMPRESSION: A 77-year-old with bilateral pulmonary emboli, deep vein thrombosis involving the left lung, with hypoxemic respiratory failure. She continues to do hemodynamically well. She reports her sense of dyspnea has diminished. RECOMMENDATIONS: 1. Continue heparin drip. At this juncture, she could be transitioned to Eliquis, or Xarelto, or even Lovenox. 2. Continue bronchial hygiene. She will be given an incentive spirometer. 3. Would limit mobilization for several days, although this is not well-defined in the literature. cc: Wai Lopez MD
[2018-10-13] MEDS ORDERED: HYDROCHLOROTHIAZIDE PO SCH (11:00)
[2018-10-13] MEDS: ELIQUIS PO SCH ×2 (11:39→20:15)
[2018-10-13] MEDS: LASIX IV SCH (11:39)
--- NOTE | 2018-10-13 11:43 | PROGRESS NOTE ---
DATE: 10/13/2018 SUBJECTIVE: This morning, Ms. Prather refers to be doing a lot better. No chest pain. No shortness of breath. She says she has been coughing, but she feels the chest has loosened up. OBJECTIVE: Vital signs: Blood pressure is 142/79, pulse is 83, respiration is 25, temperature 98.7 degrees. General: Ms. Prather is a 77-year-old female. She is in bed. She is not in any cardiopulmonary distress. HEENT: Mucosa is pink and moist. Anicteric. Acyanotic. Neck: Supple. Chest: Good air entry bilateral. No crepitations. No rhonchi. Cardiovascular: Regular rate and rhythm. No murmurs, no rubs, no gallops. GI: Abdomen was soft, nontender. Bowel sounds present. Extremities: A trace of pedal edema. 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 There is no focal neurological deficit. LABORATORY DATA: WBC is down to 15.51, hemoglobin is 12.9, platelet count of 259,000. Chemistry is also reviewed which is completely unremarkable. A chest x-ray this morning did show atelectasis versus pneumonia in the lingula. ASSESSMENT: 1. Acute hypoxemic respiratory failure secondary to pulmonary embolism with pneumonia. We will continue to address the underlying issues. Patient is currently on nasal cannula at 4 L, and she is saturating about 95%. 2. Bilateral pulmonary emboli with elevated proB. The patient had an echocardiogram, which did not make any mention of acute problem with the right ventricle. This morning she remains hemodynamically stable. She was on heparin drip. We are going to change this to Eliquis 10 mg b.i.d. for 7 days and transition it to 5 mg b.i.d. for the rest of the duration. Patient is being seen by Heme-Onc. 3. Left lower extremity deep venous thrombosis. Will continue with anticoagulation. 4. Left lingular pneumonia versus atelectasis. Patient is currently on intravenous antibiotics. White cell count seems to be going down. We will continue with the current antibiotic coverage. 5. Hypertension is controlled. 6. Morbid obesity. 7. History of rheumatoid arthritis. The patient used to be Enbrel, but has not taken this since July of last year. She follows up with a marine erector in [place]. 8. Chronic steroid use. The patient was on prednisone at home. In the hospital, she was started on stress doses of steroids. I have gone back to her regular doses now. 9. Multiple rib fractures at the right side. 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 We will restart the patient back on her high doses of vitamin D. I think she will eventually to be on bisphosphonates. We will, however, defer that recommendation to her marine erector that she is on regular basis. So, in general, I think Ms. Prather is doing fairly okay, hemodynamically stable. We are going to switch her from the IV anticoagulation to p.o. Eliquis. Observe her 1 day in the ICU. If she is stable and tolerating her p.o. medications, we will transfer her to the floor and hopefully, get her home in the next 24 to 48 hours. cc: Jacobo Franks MD
[2018-10-13] MEDS: MAVIK PO SCH (12:36)
[2018-10-13] MEDS: ROCEPHIN 1 GM in NS 50 ML IV SCH (16:35)
[2018-10-13] MEDS: PREDNISONE PO SCH (20:15)
[2018-10-13] MEDS: AMBIEN PO SCH (20:15)
[2018-10-14 05:43] LABS: BASO# 0.02 X1000 (0.0-0.2); BASO% 0.2 % (0.0-0.8); EOS# 0.03 X1000 (0.0-0.7); EOS% 0.2 % (0.0-10.0); HEMATOCRIT 38.4 % (37.0-47.0); HEMOGLOBIN 11.7 g/dL (12.0-16.0); IMM GRAN# 0.05 X1000 (0.0-0.04); IMM GRAN% 0.4 % (0.0-0.5); LYMPH# 1.37 X1000 (1.2-3.4); MCH 30.7 PG (27-31); MCHC 30.5 g/dL (33-37); MCV 100.8 FL (81-99); MONO# 1.21 X1000 (0.11-0.59); MONO% 9.7 % (1.7-9.3); MPV 9.7 FL (7.4-10.4); NEUT# 9.78 X1000 (1.4-6.5); NEUT% 78.5 % (42.2-75.2); PLT 277 X1000 (130-400); RBC 3.81 XMIL (4.2-5.4); RDW 14.8 % (11.5-14.5); WBC 12.46 X1000 (4.8-10.8)
[2018-10-14 06:22] LABS: AGAP 12; ALB/GLOB RATIO 0.9; ALBUMIN 2.8 g/dL (3.5-5.0); ALKALINE PHOSPHATASE 53 U/L (32-104); BUN 39 mg/dL (8-22); CALCIUM 8.5 mg/dL (8.8-10.2); CHLORIDE 104 mmol/L (98-107); COSMO 299; CREATININE 0.7 mg/dL (0.5-0.9); ESTIMATED GFR > 60; GLUCOSE 119 mg/dL (70-104); GOT 20 U/L (10-30); GPT 29 U/L (10-36); MAGNESIUM 1.8 mg/dL (1.5-2.7); PHOSPHORUS 2.9 mg/dL (2.7-4.5); POTASSIUM 3.7 mmol/L (3.5-5.1); SODIUM 145 mmol/L (136-145); TCO2 29 mmol/L (25-35); TOTAL BILIRUBIN 0.44 mg/dL (0.20-1.00)
[2018-10-14] MEDS: PRILOSEC PO SCH (06:36)
--- NOTE | 2018-10-14 08:51 | HEMO/ONC PROGRESS NOTE ---
DATE: 10/14/2018 SUBJECTIVE: The patient says she seems to be feeling better at this time. Shortness of breath continues to improve. OBJECTIVE: Vital Signs: Temperature 97.5 degrees, heart rate 73, respiratory rate 24, blood pressure 139/74, saturating 96% on nasal cannula. General: Patient is awake, lying in bed, in no acute distress noted. HEENT: Anicteric. Pupils PERRLA. Mucous membranes appear to be moist. Cardiovascular: Normal S1, S2. Regular rate and rhythm. Chest: Breath sounds with rhonchi bilaterally. Abdomen: Soft, nontender. Bowel sounds present all 4 quadrants. Neurologic: Alert and oriented x3. No focal deficits noted. LABORATORY DATA: White blood cell count is 12.46, hemoglobin 10.7, hematocrit 38.4, platelets are 277. Potassium 3.7, BUN 39, creatinine 0.7. RADIOLOGY RESULTS: Chest x-ray yesterday showed atelectasis versus pneumonia in the lingula. ASSESSMENT AND PLAN: 1. Acute bilateral pulmonary emboli with extensive left lower extremity deep venous thrombosis. Hypercoagulable still pending. We will continue to monitor and follow up on those. The patient is on Eliquis at this time. Continue Eliquis as ordered. Continue to monitor very closely. 2. Acute hypoxic respiratory failure: Shortness of breath continues to improve. Continue oxygen and recommendations per pulmonology. 3. Leukocytosis: The white blood cell count continues to decrease. This is most likely due to her chronic steroid use. Continue to monitor. 4. Gastroesophageal reflux disease. Continue with proton-pump inhibitors as ordered. Dictated by LISSETH Cuello for Camilo Ward MD cc: LISSETH Cuello MD
[2018-10-14] MEDS: ELIQUIS PO SCH ×2 (08:55→21:53)
[2018-10-14] MEDS: HYDROCHLOROTHIAZIDE PO SCH (08:56)
[2018-10-14] MEDS: PREDNISONE PO SCH ×2 (08:56→21:53)
[2018-10-14] MEDS: LASIX IV SCH (08:57)
[2018-10-14] MEDS: ISOPTIN SR PO SCH ×2 (08:57→21:52)
[2018-10-14] MEDS: ZITHROMAX PO SCH (08:57)
[2018-10-14] MEDS: MAVIK PO SCH (08:58)
[2018-10-14] MEDS ORDERED: VITAMIN D PO SCH (09:30)
--- NOTE | 2018-10-14 10:55 | PULMONOLOGY PROGRESS NOTE ---
DATE: 10/14/2018 SUBJECTIVE: Patient reports she feels a little better when she sits up and coughs and clears her secretions. She currently has no dyspnea at rest. OBJECTIVE: Vital signs: BP 162/72, heart rate 80, respiration rate 19, oxygen saturation 94% on 4 L per nasal cannula. HEENT: Pupils are equal and reactive. Oropharynx is clear. Neck: Supple. Chest: Reveals significant kyphosis. Cardiac: S1, S2. Abdomen: Soft. Extremities: Without edema. LABORATORIES: ProBNP has decreased to 1442. Sodium 145, potassium 3.7, chloride 104, bicarbonate 29, BUN 39, creatinine 0.7. White blood count 12.46, hemoglobin 11.7, platelet count 227,000. IMPRESSION: 1. A 77-year-old with bilateral pulmonary emboli. 2. Deep vein thrombosis in the left lung. 3. Evidence of cardiac strain with elevated proBNP. 4. Acute hypoxemic respiratory failure. 5. She has been switched to Eliquis. Although not well defined, I would recommend she remain at bed rest until Wednesday and then to begin ambulation at that time. RECOMMENDATION: 1. Agree with Eliquis as you are doing. 2. Would monitor labs and prevent patient from being too prerenal. 3. Recommend patient remain relatively immobile over the weekend and to begin physical therapy on Wednesday. cc: Wai Lopez MD
--- NOTE | 2018-10-14 12:04 | PROGRESS NOTE ---
DATE: 10/14/2018 SUBJECTIVE: This morning, Ms. Prather refers to be doing a whole lot better. Shortness of breath and cough significantly improved. She is on 4 L of nasal cannula oxygen, and she is saturating 98. OBJECTIVE: Vital signs: Blood pressure is currently 171/95, pulse 78, respiration 24, temperature is 97.6. General: Ms. Prather is a 77-year-old female. She is in bed in no distress. HEENT: Mucosa is pink and moist. Anicteric and acyanotic. Neck: Supple. Chest: Good entry bilaterally, a few crackles posteriorly. Cardiovascular: Regular rate and rhythm. There are no murmurs, no rubs, no gallops. GI: Abdomen was soft, nontender, bowel sounds present. Extremities: Trace of pedal edema. SOCIAL WORK ASSISTANT: The patient is awake, alert, and oriented. There is no focal neurological deficit. LABORATORY DATA: WBC 12.46, hemoglobin 11.7, platelet count 277. Chemistries also reviewed, completely normal. MEDICATIONS: The patient is currently on: 1. Eliquis 10 b.i.d. 2. Azithromycin 500 daily. 3. Ceftriaxone 1 g daily. Today is day 2 on that. 4. Hydrochlorothiazide 25 daily for blood pressure control. 5. Verapamil 240. 6. Mavik 4 mg daily. ASSESSMENT: 1. Acute hypoxemic respiratory failure on presentation secondary to PE with associated pneumonia. The patient is currently saturating well on 4 L nasal cannula. 2. Bilateral pulmonary emboli with left lower extremity deep vein thrombosis. The patient has been started on Eliquis 10 mg yesterday. She seems to be tolerating it well. 3. Left lingular pneumonia versus atelectasis. The patient is currently on antibiotics. White cell count is on downward trend. 4. Uncontrolled hypertension. The patient has been started on her home meds. We will continue to observe this. 5. History of rheumatoid arthritis noted. 6. Chronic steroid use. The patient is on prednisone at home. She seems to have had some fractures to the right ribs secondary to osteoporosis. She has been advised before that she would need to be on a bisphosphonate and she would continue that with her cable engineer. 7. 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 In general, I think Ms. Prather is doing fairly okay. She is stable, hemodynamically fine. We are going to transfer her to a regular room and continue with the current anticoagulation. cc: Jacobo Franks MD
[2018-10-14] MEDS: ROCEPHIN 1 GM in NS 50 ML IV SCH (16:24)
[2018-10-14] MEDS: AMBIEN PO SCH (21:53)
[2018-10-14] MEDS: NORCO-5 PO PRN (21:57)
[2018-10-15] MEDS: PRILOSEC PO SCH (06:01)
[2018-10-15] MEDS: MAVIK PO SCH (10:25)
[2018-10-15] MEDS: ISOPTIN SR PO SCH ×2 (10:26→22:08)
[2018-10-15] MEDS: PREDNISONE PO SCH ×2 (10:26→22:08)
[2018-10-15] MEDS: ELIQUIS PO SCH ×2 (10:26→22:07)
[2018-10-15] MEDS: HYDROCHLOROTHIAZIDE PO SCH (10:27)
[2018-10-15] MEDS: LASIX IV SCH (10:27)
[2018-10-15] MEDS: ZITHROMAX PO SCH (10:27)
--- NOTE | 2018-10-15 14:25 | PROGRESS NOTE ---
DATE: 10/15/2018 SUBJECTIVE: This morning Ms. Prather referred to be doing fairly okay. No chest pain and no shortness of breath. She was sitting at the side of the bed and was in the room with her. OBJECTIVE: Vitals: Blood pressure is 155/66, pulse 81, respirations 22, temperature 98.1 degrees. General: Ms. Prather 77-year-old female she was sitting at the edge of the bed, she was not in any cardiopulmonary distress. Mucosa is pink and moist. Anicteric. Acyanotic. Neck: Supple. Chest: Good entry bilateral. There was no crepitations, no rhonchi. Cardiovascular: Regular rate and rhythm. No murmurs, no rubs, no gallops. Abdomen: Was soft, nontender, bowel sounds present, slightly distended. Extremities: No pedal edema. Distal pulses present. COLLABORATING SUPERVISING PHYSICIAN: Patient is awake, alert, oriented. There is no focal neurological deficit. LABORATORY DATA: None for today. Medications have been reviewed, patient is currently on therapeutic doses of Eliquis. ASSESSMENT: 1. Acute hypoxemic respiratory failure on presentation secondary to pulmonary embolism associated with pneumonia, patient is currently still on 4 L of nasal cannula. We are going to titrate this down today. 2. Bilateral pulmonary emboli with left lower extremity deep vein thrombosis. The patient is on Eliquis. 3. Left lingular pneumonia versus atelectasis. White cell count normalized, patient is still on ceftriaxone and azithromycin. Will continue this for a total of 7 days. 4. History of rheumatoid arthritis. Patient follows up with a hand spring repairer in [place]. 5. Chronic steroid use. 6. 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 Patient has been advised to follow up with her hand spring repairer to evaluate the use of bisphosphonates. So in general I think Ms Prather is doing a lot better. She is still on oxygen at 4 L. We are going to see we can titrate this off today and hopefully send her home tomorrow. cc: Jacobo Franks MD MTDD
--- NOTE | 2018-10-15 14:32 | HEMO/ONC PROGRESS NOTE ---
DATE: 10/15/2018 SUBJECTIVE: The patient continues to feel better at this time. Shortness of breath and cough have greatly improved. OBJECTIVE: Vitals Signs: Temperature 98.1, heart rate 81, respiratory rate 22, blood pressure 155/56, sat 95% on nasal cannula. General: Patient is awake, lying in bed, in no acute distress noted. HEENT: Anicteric. Pupils PERRLA. Mucous membranes moist. Cardiovascular: S1, S2. Regular rate and rhythm. Chest: Bilateral breath sounds clear to auscultation. Abdomen is soft, nontender. Bowel sounds present in all 4 quadrants. Neurologic: Alert and oriented x3. No focal deficits noted. LABORATORY DATA: White cell count 7.46, hemoglobin 11.7, hematocrit 38.4, platelets are 277. Potassium 3.7. BUN 39, creatinine 0.7. ASSESSMENT AND PLAN: 1. Acute bilateral pulmonary emboli with left lower extremity deep venous thrombosis: So far hypercoagulable workup continues to be negative. Continue to monitor those labs. The patient will continue on Eliquis as ordered. Continue to monitor closely. 2. Acute hypoxic respiratory failure. Shortness of breath continues to improve. Continue recommendations per Pulmonology. Disposition: Patient to be discharged on Eliquis. Patient will follow up in Clinic after discharge. Dictated by LISSETH Cuello for Camilo Ward MD MTDD
[2018-10-15] MEDS: ROCEPHIN 1 GM in NS 50 ML IV SCH (14:44)
--- NOTE | 2018-10-15 19:47 | PULMONOLOGY PROGRESS NOTE ---
DATE: 10/15/2018 SUBJECTIVE: Patient reports she feels better. She reports her dyspnea continues to diminish. OBJECTIVE: The patient has been afebrile for the last 24 hours. Blood pressure 135/50, heart rate 68, respiratory rate 22, oxygen saturation 91% on 4 L per nasal cannula.HEENT: Pupils are equal and reactive. Oropharynx is clear. Neck: Supple. Chest: Reveals significant kyphosis with diminished breath sounds. Cardiac: S1-S2. Abdomen: Soft and without hepatosplenomegaly. Extremities: Reveal trace pretibial edema. LABORATORIES: No new chemistries or CBC. IMPRESSION: 77-year-old with bilateral pulmonary emboli with significant pulmonary burden, left lower lobe deep vein thrombosis, decreasing proBNP level, acute hypoxemic respiratory failure. RECOMMENDATIONS: 1. Continue Eliquis as you are doing. 2. Would limit ambulation through the weekend then begin mobilization on Wednesday. Although this is not well-defined, patient will through emboli with ambulation. She will be at less risk the further she is from the point of initial anticoagulation. 3. Anticipate discharge next week. cc: Wai Lopez MD
[2018-10-15] MEDS: NORCO-5 PO PRN (22:08)
[2018-10-15] MEDS: AMBIEN PO SCH (22:08)
[2018-10-16] MEDS: PRILOSEC PO SCH ×2 (05:51→06:00)
[2018-10-16] MEDS: PREDNISONE PO SCH (11:20)
[2018-10-16] MEDS: ELIQUIS PO SCH (11:21)
[2018-10-16] MEDS: ISOPTIN SR PO SCH (11:21)
[2018-10-16] MEDS: ZITHROMAX PO SCH (11:21)
[2018-10-16] MEDS: MAVIK PO SCH (11:21)
[2018-10-16] MEDS: HYDROCHLOROTHIAZIDE PO SCH (11:21)
[2018-10-16 15:16] VITALS: BP 111/61
--- NOTE | 2018-10-17 04:17 | DISCHARGE SUMMARY ---
ADMISSION DATE: 10/11/2018 DISCHARGE DATE: 10/16/2018 CONSULTATION DURING THIS ADMISSION: Heme-Onc was consulted, the patient was seen by Dr. Ward. Pulmonary Medicine was consulted, the patient was seen by Dr. Hardin. INVASIVE PROCEDURES DONE DURING THIS ADMISSION: None. IMAGING STUDIES OF SIGNIFICANCE: 1. A CTA was done which shows several acute pulmonary emboli, several recent right-sided rib fractures, nodular infiltrate or opacity in the superior segment of the right lower lobe. 2. Echocardiogram did show an ejection fraction of 65%-70%. 3. A Doppler ultrasound did show an extensive thrombosis on the left. 4. A follow-up chest x-ray shows atelectasis versus pneumonia in the lingula. ADMISSION DIAGNOSES: 1. Bilateral pulmonary embolism. 2. Extensive left lower lobe deep venous thrombosis. 3. Leukocytosis. 4. Right-sided rib fractures. 5. Rheumatoid arthritis on chronic steroid use. DIAGNOSES AT THE TIME OF DISCHARGE: 1. Acute hypoxemic respiratory failure on presentation secondary to pulmonary embolism and pneumonia. The patient's oxygen needs has been titrated and weaned off. This afternoon she was saturating 95%-100% on ambient air. 2. Bilateral pulmonary emboli with left lower deep vein thrombosis. The patient was initially started on heparin drip and was transitioned to Eliquis. 3. Left lingular pneumonia versus atelectasis. The patient is on antibiotics and will complete azithromycin 7 days. 4. History of rheumatoid arthritis. The patient follows up with a section hand helper in [place]. 5. Acquired immunocompromised state secondary to chronic steroid use. 6. 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 The patient has been advised to discuss the use of bisphosphonates with her PCP and section hand helper. PRESENTING COMPLAINT: Shortness of breath. HISTORY OF PRESENTING COMPLAINT: Ms. Prather is a 77-year-old female with a history of rheumatoid arthritis, GERD, hypertension, who came to the emergency department because of acute onset of shortness of breath. The patient was evaluated and was found to have O2 saturation of 85% on room air. She was placed on oxygen and was investigated. A CTA revealed acute pulmonary emboli bilaterally, and a Doppler ultrasound did show an extensive left lower extremity deep vein thrombosis. The patient presented initially to [facility], was evaluated over there and transferred to [facility] for higher level of care. HOSPITAL COURSE: Ms. Prather was initially admitted to the ICU. She was on a face max at 8 L and this was progressively wean down until discharge that she was on nothing. Investigation did reveal bilateral PE and DVT. She was initially started on heparin drip. Heme-Onc and Pulmonary Medicine were consulted. The patient anticoagulation was changed when she became more stable to Eliquis. The patient hemodynamically had always been stable, never had hypotension. Her oxygen demands were daily titrated, so this morning she was just on 2 L, and this was taken off and she has been maintaining adequate saturation throughout the day. She is now completely asymptomatic. She has been advised that she can do very light walking around, but no any strenuous activity. She will go home to complete a 7-day course of Eliquis 10 mg b.i.d., after that she will be on 5 mg b.i.d. and follow up with Dr. Ward. This morning her vitals, blood pressure is 111/62, pulse is 80, respirations 16, temperature is 98.1 degrees. The patient is saturating 95% on room air. DISCHARGE MEDICATIONS: Include: 1. Prednisone 10 mg b.i.d. 2. Hydrochlorothiazide 25 mg daily. 3. Trandolapril (Mavik 4 mg daily). 4. Verapamil 240 b.i.d. 5. Zolpidem. 6. Vitamin D. 7. Zithromax 250 p.o. daily. 8. Eliquis 10 mg b.i.d. for 4 days, then 5 mg b.i.d. 9. Omeprazole 20 mg daily. DISCHARGE INSTRUCTIONS: All the discharge instructions were discussed with Ms. Prather, her was at the bedside at the time of the encounter. They both voiced understanding. Time spent for discharge is 35 minutes. cc: MD Isiah Arroyo MD Naveen T. Lobo, MD
== END 2018-10-16 16:35 | disposition home or self-care (01) | DRG 175 ==
LOC: P.ED 10:31 → P.EDIPHOLD 10:32 → SUATTDRO 10:32 → ICU 20:19 → 4N 10-14 12:19
PROVIDERS: ATTEND Internal Medicine
CPT/HCPCS: 51702; 71010; 71020; 71045; 71046; 71275; 80053; 81240; 81241; 82550; 82805; 83090; 83605; 83735; 83880; 84100; 84484; 85025; 85300; 85301; 85302; 85306; 85610; 85612; 85613; 85730; 86147; 87040; 87275; 87276; 87804; 93005; 93306; 93970; 94761; 96365; 96366; 96368; 96375; 99285; A9270; J0696; J1644; J1720; J1940; J7030; J7506; J7512; Q9967